=== PATIENT | male | born 1980 | race Caucasian/White ===

== ENCOUNTER → 2022-10-02 | Outpatient (CLI) | payer BC | END | disposition home or self-care (01) | LOC: LABWHC1 10:28 | PROVIDERS: ATTEND Allergy & Immunology | DX: T78.2XXA Anaphylactic shock, unspecified, initial encounter (principal) | CPT/HCPCS: 36415 ==

== ENCOUNTER → 2023-01-20 | Outpatient (CLI) | payer BC ==
--- NOTE | 2023-01-20 16:49 | CT ---
EXAMINATION TYPE: CT soft tissue neck w con CT DLP: 678.5 mGycm, Automated exposure control for dose reduction was used. DATE OF EXAM: 01/20/2023 7:26 AM COMPARISON: None. CLINICAL INDICATION:Male, 42 years old with history of K14.0 GLOSSITIS; PHH, tongue CA TECHNIQUE: Standard enhanced CT of the neck. Axial sections with coronal and sagittal reformats were obtained. Contrast used:100 mL of Isovue 300 with IV Contrast, Oral contrast used: none. FINDINGS: Brain: Visualized portions are grossly unremarkable. Orbits: Unremarkable Sinuses: Grossly unremarkable. Spaces of the neck: Clear and symmetric. The base of the tongue is relatively smooth symmetric given limitations of CT. The base of the tongue is rather symmetric. Musculoskeletal: No acute osseous pathology. Mild degeneration changes throughout the spine. Lymph nodes: Multiple nonenlarged lymph nodes are seen along both anterior chains of the neck. Vascular structures: Visualized major arteries are patent without evidence of aneurysm. Thoracic Inlet/airway: Airway is patent. The lung apices are clear. Soft tissues/Thyroid: Thyroid and remainder of the soft tissues are unremarkable. Other: none. IMPRESSION No definitive evidence for mass given reported history of tongue cancer or evidence for lymphadenopat hy. Consider nuclear medicine PET/CT scan for further characterization for metastatic disease.
== END | disposition home or self-care (01) ==
LOC: RADCTMAIN 06:48
PROVIDERS: ATTEND Internal Medicine
DX: K14.0 Glossitis (principal)
CPT/HCPCS: 70491; Q9967

== ENCOUNTER → 2023-08-15 | Outpatient (CLI) | payer BC ==
--- NOTE | 2023-08-17 21:42 | PE ---
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 Images are reviewed on the computer in the coronal, axial, and sagittal planes. Reconstructed rotating images are created on independent workstation and reviewed on the computer. A non-contrast CT is performed in conjunction with the PET scan. Glucose level 80 mg/dL CT DLP: 619 mGycm, Automated exposure control for dose reduction was used. COMPARISON: CT 01/20/2023, PET/CT None, FINDINGS: Mediastinal SUV mean is 2.1. Hepatic parenchyma SUV mean is 2.5. SKULL BASE AND NECK: * Increased mucosal uptake at the base of the tongue max SUV 7.2 on the left hand 4.8 on the right.. * Left supraclavicular lymph node max SUV 3.0 measuring 5 mm in short axis previously 2 mm on 023 * Suspected physiologic uptake within the level of the vocal cords max SUV 5.1. CHEST, MEDIASTINUM, AND HILAR REGION: No suspicious radiotracer activity. ABDOMEN AND PELVIS: No suspicious radiotracer activity. MUSCULOSKELETAL STRUCTURES: No suspicious radiotracer activity. OTHER CT: Edema throughout the neck soft tissues predominantly on the right. Paranasal sinus disease with mucosal thickening of the right maxillary sinus. Surgical clips present in the right neck. Degen eration changes of the hips with subchondral cystic change in the left. IMPRESSION: 1. Increased metabolic activity within the oropharynx mucosa which is slightly asymmetrically increa sed on the left near the base of the tongue. Correlate with direct visualization. 2. Single left supraclavicular lymph node with increased metabolic activity. This is increased in si ze from prior. 3. No abnormal increased metabolic activity within the right neck surgical bed or throughout the rem ainder of the exam below the neck.
== END | disposition home or self-care (01) ==
LOC: RADPETMAIN 07:02
PROVIDERS: ATTEND Internal Medicine
DX: C06.9 Malignant neoplasm of mouth, unspecified (principal)
CPT/HCPCS: 78815; A9552

== ENCOUNTER → 2023-11-08 | Outpatient (CLI) | payer BC ==
--- NOTE | 2023-11-09 06:00 | PE ---
EXAMINATION TYPE: PET CT fusion skull to thigh DATE OF EXAM: 11/08/2023 COMPARISON: Prior PET/CT August 15, 2023 HISTORY: Tongue cancer progress study originally diagnosed in December 2022. Glossectomy and neck dissect ion February 25, 2023. Completed radiation treatment May 2023. TECHNIQUE: Following the intravenous administration of 13.0 mCi of F-18 FDG, whole body images are p erformed from the skull base to the midthigh. Images are reviewed on the computer in the coronal, ax ial, and sagittal planes. Reconstructed rotating images are created on independent workstation and r eviewed on the computer. A localization and attenuation correction CT is performed in conjunction w ith the PET scan. Blood glucose level equals 95. Dedicated PET CT of the neck is performed. SCAN: Subsequent Scan FINDINGS: SKULL BASE AND NECK: No definitive new areas of abnormal hypermetabolic uptake. Prior mildly hyperme tabolic subcentimeter left supraclavicular lymph node is smaller in size without abnormal hypermetabo lic uptake on current study axial image 71. CHEST, MEDIASTINUM, AND HILAR REGION: No definitive new areas of abnormal hypermetabolic uptake. ABDOMEN AND PELVIS: No definitive new areas of abnormal hypermetabolic uptake. Normal excretion. OSSEOUS STRUCTURES: No definitive new areas of abnormal hypermetabolic uptake. OTHER CT: Improved neck edema noted. Surgical changes right neck again seen. Mucus retention cysts an d/or polyps in the inferior right maxillary sinus are redemonstrated. Old fracture deformity medial w all right orbit again seen. IMPRESSION: No new areas of abnormal suspicious hypermetabolic uptake to suggest active local or meta static neoplastic recurrence.
== END | disposition home or self-care (01) ==
LOC: RADPETMAIN 08:24
PROVIDERS: ATTEND Internal Medicine
DX: C02.8 Malignant neoplasm of overlapping sites of tongue (principal)
CPT/HCPCS: 78815; A9552